=== PATIENT | male | born 1975 | race Caucasian/White ===

== ENCOUNTER 2017-06-16 14:44 | Emergency (ER) | payer MEDICARE ==
[~2017-06-16] VITALS: Ht 180.3 cm; Wt 91.2 kg
[2017-06-16 14:53] VITALS: BP 140/88; PULSE 90; RESP 14; TEMP 98.2; O2SAT 99
[2017-06-16] MEDS ORDERED: BACT800T5 PO (15:06)
--- NOTE | 2017-06-16 15:22 | PD ---
HPI Chief Complaint: GI Complaint Time Seen by Provider: 15:06 Travel History International Travel<30 days: No Contact w/Intl Traveler<30days: No Traveled to known affect area: No History of Present Illness HPI This 41-year-old male says he just doesn't feel very well. He's had some intermittent vertigo. He was on some Bactrim for a few days for treatment of a pustular rash related to insect bites. He stopped the Bactrim because he thought he might be having side effects including general malaise. He's had some vertigo. He has a history of multiple schwanomma PFSH Past Medical History Medical History: Denies Significant Hx Diminished Hearing: No Influenza Vaccination: No Past Surgical History Surgical History: No Previous Surgery Social History Alcohol Use: No Tobacco Use: No Allergies-Medications (Allergen,Severity, Reaction): Coded Allergies: Penicillins (Verified Allergy, Intermediate, Hives, 06/16/17) codeine (Verified Allergy, Mild, Hives, 06/16/17) Reported Meds & Prescriptions Reported Meds & Active Scripts Active Reported Bactrim DS (Sulfamethoxazole-Trimethoprim) 800-160 Mg Tab 1 Tab PO BID Review of Systems General / Constitutional: No: Fever, Chills Eyes: No: Diploplia, Blurred Vision HENT: Positive: Vertigo, No: Headaches Cardiovascular: No: Chest Pain or Discomfort, Palpitations Respiratory: No: Cough Gastrointestinal: No: Vomiting, Diarrhea Genitourinary: No: Urgency Musculoskeletal: No: Myalgias, Arthralgias Skin: No Rash Neurologic: Positive: Dizziness, No: Weakness Psychiatric: No: Anxiety Physical Exam Narrative GENERAL: Well-developed male SKIN: Focused skin assessment warm/dry. HEAD: Atraumatic. Normocephalic. EYES: Pupils equal and round. No scleral icterus. No injection or drainage. ENT: No nasal bleeding or discharge. Mucous membranes pink and moist. TMs are negative NECK: Trachea midline. No JVD. GASTROINTESTINAL: Abdomen soft, non-tender, nondistended. Hepatic and splenic margins not palpable. MUSCULOSKELETAL: No obvious deformities. No clubbing. No cyanosis. No edema. NEUROLOGICAL: Awake and alert. No obvious cranial nerve deficits. Motor grossly within normal limits. Normal speech. PSYCHIATRIC: Appropriate mood and affect; insight and judgment normal. Data Data Last Documented VS Vital Signs Date Time Temp Pulse Resp B/P (MAP) Pulse Ox O2 Delivery O2 Flow Rate FiO2 06/16/17 14:53 98.2 90 14 140/88 (105) 99 MDM Medical Decision Making Medical Screen Exam Complete: Yes Emergency Medical Condition: Yes Medical Record Reviewed: Yes Differential Diagnosis Differential includes vertigo, adverse medication reaction, schwannoma Narrative Course Patient's exam now is quite benign. I recommended he take meclizine as needed for vertigo and if his symptoms did not persist she should follow-up with neurology and possible MRI Diagnosis Primary Impression: Vertigo Additional Instructions: Take meclizine as needed for vertigo Disposition: 01 DISCHARGE HOME Condition: Stable Wyatt Woods MD Jun 16, 2017 15:22
== END 2017-06-16 15:42 | disposition home or self-care (01) ==
LOC: PHED 14:44
DX: R42 Dizziness and giddiness (principal)
CPT/HCPCS: 99281

== ENCOUNTER 2017-09-21 10:40 | Emergency (ER) | payer MEDICARE ==
[~2017-09-21] VITALS: Ht 177.8 cm; Wt 91.9 kg
[~2017-09-21 10:40] MED LIST: BACT800T5 PO
[2017-09-21 10:53] VITALS: BP 133/73; PULSE 88; RESP 16; TEMP 98.6; O2SAT 100
[2017-09-21] MEDS ORDERED: MONT10TA2 PO (13:37)
[2017-09-21] MEDS ORDERED: CHEL50TA PO (13:37)
[2017-09-21] MEDS ORDERED: NIAC500T5 PO (13:37)
[2017-09-21] MEDS ORDERED: ASPI81CH6 PO (13:37)
[2017-09-21] MEDS ORDERED: FOLI20CA PO (13:37)
[2017-09-21 13:42] VITALS: RESP 18; O2SAT 99
[2017-09-21] MEDS ORDERED: SODIUM CHLORIDE 0.9% FLUSH 10 ML FLUSH IVF PRN (13:45)
[2017-09-21 14:09] LABS: AUTOMATED NEUTROPHIL # 6.8 TH/MM3 (1.8-7.7); BASOPHIL # 0.1 TH/MM3 (0-0.2); BASOPHIL % 0.7 % (0.0-2.0); EOSINOPHIL % 0.4 % (0.0-4.0); HEMATOCRIT 43.4 % (39.0-51.0); HEMO FLAGS DIFF FINAL; LYMPH % 21.1 % (9.0-44.0); LYMPHOCYTE # 1.9 TH/MM3 (1.0-4.8); MEAN CELL VOLUME 89.8 FL (80.0-100.0); MEAN CORPUSCULAR HEMOGLOBIN 30.3 PG (27.0-34.0); MEAN CORPUSCULAR HGB CONC 33.8 % (32.0-36.0); MONO % 4.9 % (0.0-8.0); NEUT % 72.9 % (16.0-70.0); PLATELET COUNT 230 TH/MM3 (150-450); RED BLOOD COUNT 4.83 MIL/MM3 (4.50-5.90); RED CELL DISTRIBUTION WIDTH 12.2 % (11.6-17.2); WHITE BLOOD COUNT 9.2 TH/MM3 (4.0-11.0)
[2017-09-21 14:21] LABS: CHLORIDE 107 MEQ/L (98-107); POTASSIUM 3.8 MEQ/L (3.5-5.1); SODIUM (NA) 142 MEQ/L (136-145)
[2017-09-21 14:24] LABS: ANION GAP 5 MEQ/L (5-15)
[2017-09-21 14:25] LABS: BLOOD UREA NITROGEN 9 MG/DL (7-18); MAGNESIUM 2.1 MG/DL (1.5-2.5)
[2017-09-21 14:28] LABS: ALT (GPT) 34 U/L (12-78); AST (GOT) 20 U/L (15-37); GLOMERULAR FILTRATION RATE 110 ML/MIN (>89)
[2017-09-21 14:29] LABS: TOTAL BILIRUBIN ADULT 0.6 MG/DL (0.2-1.0)
[2017-09-21 14:31] LABS: ALKALINE PHOSPHATASE 58 U/L (45-117)
--- NOTE | 2017-09-21 14:45 | RADRPT ---
EXAM DATE/TIME: 09/21/2017 14:27 [facility] COMPARISON: No previous studies available for comparison. INDICATIONS : Chest pain. MEDICAL HISTORY : None. SURGICAL HISTORY : None. ENCOUNTER: Initial ACUITY: 3 months PAIN SCORE: 3/10 LOCATION: Bilateral upper chest FINDINGS: A single view of the chest demonstrates the lungs to be symmetrically aerated without evidence of mas s, infiltrate or effusion. The cardiomediastinal contours are unremarkable. Osseous structures are intact. CONCLUSION: 1. No acute cardiopulmonary findings. Osman Pinedo MD on September 21, 2017 at 14:42 Board Certified Radiologist. This report was verified electronically.
--- NOTE | 2017-09-21 14:57 | PD ---
HPI Chief Complaint: Cardiac Complaint Time Seen by Provider: 12:59 Travel History International Travel<30 days: No Contact w/Intl Traveler<30days: No Traveled to known affect area: No History of Present Illness HPI Patient is a 42-year-old male presents emergency department for evaluation of palpitations and vague chest discomfort for the past 3 months. He states palpitations of been going on for the past year however. Denies any shortness of breath dizziness diaphoresis. States never had a stress test or cardiac catheterization before. He states the pain is lasting only for a second or 2 in the center of his chest without radiation. Cannot think of any alleviating or exacerbating factors. Symptoms are mild, waxing and waning. 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) Tetanus Vaccination: Unknown Influenza Vaccination: No Past Surgical History Appendectomy: Yes Other Surgery: Yes (facial) Social History Alcohol Use: No Tobacco Use: Yes (>1/4 ppd) Substance Use: No Allergies-Medications (Allergen,Severity, Reaction): Coded Allergies: Penicillins (Verified Allergy, Intermediate, Hives, 09/21/17) codeine (Verified Allergy, Mild, Hives, 09/21/17) Reported Meds & Prescriptions Reported Meds & Active Scripts Active Reported Niacin 500 Mg Tab 500 Mg PO DAILY Folic Acid 20 Mg Cap 1,000 Mg PO DAILY Zinc (Zinc Gluconate) 50 Mg Tab 50 Mg PO DAILY Aspirin Low Dose (Aspirin) 81 Mg Chew 81 Mg PO DAILY Singulair (Montelukast Sodium) 10 Mg Tab 10 Mg PO DAILY Review of Systems Except as stated in HPI: all other systems reviewed are Neg Physical Exam Narrative GENERAL: Well-developed well-nourished no obvious distress SKIN: Focused skin assessment warm/dry. HEAD: Atraumatic. Normocephalic. EYES: Pupils equal and round. No scleral icterus. No injection or drainage. ENT: No nasal bleeding or discharge. Mucous membranes pink and moist. NECK: Trachea midline. No JVD. CARDIOVASCULAR: Regular rate and rhythm. No murmur appreciated. 2+ bilateral equal pulses in all 4 extremities. RESPIRATORY: No accessory muscle use. Clear to auscultation. Breath sounds equal bilaterally. GASTROINTESTINAL: Abdomen soft, non-tender, nondistended. Hepatic and splenic margins not palpable. MUSCULOSKELETAL: No obvious deformities. No clubbing. No cyanosis. No edema. NEUROLOGICAL: Awake and alert. No obvious cranial nerve deficits. Motor grossly within normal limits. Normal speech. PSYCHIATRIC: Appropriate mood and affect; insight and judgment normal. Data Data Last Documented VS Vital Signs Date Time Temp Pulse Resp B/P (MAP) Pulse Ox O2 Delivery O2 Flow Rate FiO2 09/21/17 15:52 77 18 120/57 (78) 99 09/21/17 13:43 Room Air 09/21/17 10:53 98.6 Orders Orders Complete Blood Count With Diff (09/21/17 13:37) Comprehensive Metabolic Panel (09/21/17 13:37) Magnesium (Mg) (09/21/17 13:37) Troponin I (09/21/17 13:37) Chest, Single Ap (09/21/17 13:37) Ecg Monitoring (09/21/17 13:37) Iv Access Insert/Monitor (09/21/17 13:37) Oximetry (09/21/17 13:37) Oxygen Administration (09/21/17 13:37) Sodium Chloride 0.9% Flush (Ns Flush) (09/21/17 13:45) Ed Discharge Order (09/21/17 14:57) Electrocardiogram (09/21/17 11:04) Labs Laboratory Tests Test 09/21/17 13:50 White Blood Count 9.2 TH/MM3 Red Blood Count 4.83 MIL/MM3 Hemoglobin 14.6 GM/DL Hematocrit 43.4 % Mean Corpuscular Volume 89.8 FL Mean Corpuscular Hemoglobin 30.3 PG Mean Corpuscular Hemoglobin Concent 33.8 % Red Cell Distribution Width 12.2 % Platelet Count 230 TH/MM3 Mean Platelet Volume 9.3 FL Neutrophils (%) (Auto) 72.9 % Lymphocytes (%) (Auto) 21.1 % Monocytes (%) (Auto) 4.9 % Eosinophils (%) (Auto) 0.4 % Basophils (%) (Auto) 0.7 % Neutrophils # (Auto) 6.8 TH/MM3 Lymphocytes # (Auto) 1.9 TH/MM3 Monocytes # (Auto) 0.4 TH/MM3 Eosinophils # (Auto) 0.0 TH/MM3 Basophils # (Auto) 0.1 TH/MM3 CBC Comment DIFF FINAL Differential Comment Blood Urea Nitrogen 9 MG/DL Creatinine 0.78 MG/DL Random Glucose 87 MG/DL Total Protein 7.0 GM/DL Albumin 4.0 GM/DL Calcium Level 8.4 MG/DL Magnesium Level 2.1 MG/DL Alkaline Phosphatase 58 U/L Aspartate Amino Transf (AST/SGOT) 20 U/L Alanine Aminotransferase (ALT/SGPT) 34 U/L Total Bilirubin 0.6 MG/DL Sodium Level 142 MEQ/L Potassium Level 3.8 MEQ/L Chloride Level 107 MEQ/L Carbon Dioxide Level 30.0 MEQ/L Anion Gap 5 MEQ/L Estimat Glomerular Filtration Rate 110 ML/MIN Troponin I LESS THAN 0.02 NG/ML MDM Medical Decision Making Medical Screen Exam Complete: Yes Emergency Medical Condition: Yes Differential Diagnosis ACS highly unlikely, STEMI are highly unlikely, AMI highly unlikely, lecture led abnormality, palpitations, PVCs. Narrative Course Patient roomed emerged permit, EKG and basic labs are reassuring, relatively low risk chest pain features, recommended outpatient follow-up and discussed return to ED criteria. He is stable for discharge being hemodynamic stable and has had no arrhythmias on cardiac telemetry. Discussed with the patient smoking cessation. Discussed can lead to adverse health outcomes including heart attack and stroke. Diagnosis Primary Impression: Chest discomfort Additional Impression: Fatigue Referrals: Wing Rita Dexter MD Disposition: 01 DISCHARGE HOME Condition: Stable Leonardo Cabrera MD Sep 21, 2017 14:57
[2017-09-21 15:52] VITALS: BP 120/57
--- NOTE | 2017-09-23 23:42 | EKG ---
Date Performed: 09/21/2017 Time Performed: 11:04:45 PTAGE: 42 years EKG: Sinus rhythm NORMAL ECG NO PREVIOUS TRACING DOCTOR: Won Dubois Interpretating Date/Time 09/23/2017 23:41:32
== END 2017-09-21 15:55 | disposition home or self-care (01) ==
LOC: PHED 10:40
DX: R07.89 Other chest pain (principal); R53.83 Other fatigue; R00.2 Palpitations; Z72.0 Tobacco use; Z79.82 Long term (current) use of aspirin; Z79.899 Other long term (current) drug therapy; Z86.79 Personal history of other diseases of the circulatory system; Z87.39 Personal history of other diseases of the musculoskeletal system and connective tissue
CPT/HCPCS: 71010; 80053; 83735; 84484; 85025; 93005